=== PATIENT | female | born 1960 | race African-American/Black ===

== ENCOUNTER 2024-04-03 22:45 | Inpatient (IN) | payer MEDICARE, OTHER ==
[~2024-04-03] VITALS: Ht 7 cm; Wt 100.2 kg
[2024-04-03 22:45] VITALS: BP 137/76; PULSE 63; RESP 17; TEMP 97.8
[~2024-04-03 22:45] MED LIST: AMLO10TA4 PO; BENA-8 PO; DOCU100T PO; FOLI-43 PO; LEVO-65 MT; LEVO125T8 PO; ROSU5TAB PO
[2024-04-03 23:00] VITALS: BP 137/76; PULSE 63; RESP 17; TEMP 97.8
[2024-04-04] MEDS ORDERED: NALOXONE HCL 0.4MG/ML 1ML VIAL IV PRN
[2024-04-04] MEDS ORDERED: CLONIDINE 0.1MG TABLET PO PRN
[2024-04-04] MEDS ORDERED: IPRATROPIUM/ALBUTEROL 0.5-3(2.5)MG/3ML NEB HHN PRN
[2024-04-04] MEDS ORDERED: ONDANSETRON HCL 4MG/2ML INJ IV PRN
[2024-04-04] MEDS: TRAMADOL 50MG TABLET PO SCH (06:13)
[2024-04-04] MEDS: LEVOTHYROXINE SODIUM 125MCG TABLET PO SCH (06:13)
[2024-04-04 08:00] VITALS: BP 132/75; PULSE 61; RESP 18; TEMP 97.2
[2024-04-04 08:49] LABS: BASOPHILS % 0.5 % (0.0-2.0); EOSINOPHILS % 5.1 % (0.0-5.0); HEMATOCRIT. 36.1 % (36.0-48.0); HEMOGLOBIN. 11.8 g/dL (12.0-16.0); LYMPHOCYTES % 23.3 % (20.0-50.0); MEAN CORPUSCULAR HEMOGLOBIN 27.5 pg (28.0-32.0); MEAN CORPUSCULAR HGB CONC 32.8 g/dL (31.0-37.0); MEAN PLATELET VOLUME 9.5 fl (7.4-10.4); MONOCYTES % 5.2 % (2.0-8.0); NEUTROPHILS % 65.9 % (40.0-76.0); PLATELET 293 x1000/uL (130-400); RED BLOOD CELL COUNT 4.29 mill/uL (4.2-5.4); RED CELL DISTRIBUTION WIDTH 14.3 % (11.6-14.6); WHITE BLOOD COUNT 11.5 x1000/uL (4.5-11.0)
[2024-04-04] MEDS: AMLODIPINE 5MG TABLET PO SCH (08:50)
[2024-04-04 08:57] LABS: CALCIUM 9.7 mg/dL (8.7-10.4); CARBON DIOXIDE 21 mEq/L (21-32); CHLORIDE 104 mEq/L (98-107); POTASSIUM 4.4 mEq/L (3.5-5.1); SODIUM 137 mEq/L (136-145)
[2024-04-04 09:02] LABS: CREATININE 0.9 mg/dL (0.6-1.0); GLUCOSE 102 mg/dL (70-105); UREA NITROGEN BLOOD 14 mg/dL (9-23)
[2024-04-04 09:04] LABS: ALANINE AMINOTRANSFERASE 16 IU/L (10-49); ALBUMIN 4.4 g/dL (3.2-4.8); ASPARTATE AMINOTRANSFERASE 22 IU/L (<34); BILIRUBIN TOTAL 0.3 mg/dL (0.1-1.0); PREALBUMIN 14.6 mg/dl (10.0-40.0); PROTEIN TOTAL 7.5 g/dL (6.0-8.3)
[2024-04-04 15:30] LABS: CLARITY URINE CLEAR (CLEAR); COLOR URINE YELLOW (YELLOW); GLUCOSE URINE NEGATIVE (NEGATIVE); KETONES URINE NEGATIVE (NEGATIVE); LEUKOCYTE ESTERASE URINE NEGATIVE (NEGATIVE); NITRITE URINE NEGATIVE (NEGATIVE); OCCULT BLOOD URINE NEGATIVE (NEGATIVE); PH URINE 5.5 (4.5-8.0); PROTEIN URINE NEGATIVE (NEGATIVE); SPECIFIC GRAVITY URINE 1.022 (1.005-1.030); UROBILINOGEN URINE 0.2 E.U./dL (0.2-1.0)
[2024-04-04] MEDS: CEFTRIAXONE 1GM/50ML 50 ML IV SCH (15:36)
[2024-04-04 20:00] VITALS: BP 122/74; PULSE 65; RESP 18; TEMP 98.6
[2024-04-05] MEDS ORDERED: LACTULOSE 20G/30ML UDC PO PRN (02:30)
[2024-04-05 05:53] LABS: BASOPHILS % 0.4 % (0.0-2.0); CHLORIDE 105 mEq/L (98-107); EOSINOPHILS % 5.3 % (0.0-5.0); HEMATOCRIT. 33.4 % (36.0-48.0); HEMOGLOBIN. 11.1 g/dL (12.0-16.0); LYMPHOCYTES % 26.2 % (20.0-50.0); MEAN CORPUSCULAR HEMOGLOBIN 27.4 pg (28.0-32.0); MEAN CORPUSCULAR HGB CONC 33.4 g/dL (31.0-37.0); MEAN CORPUSCULAR VOLUME 82.2 fL (81.0-99.0); MEAN PLATELET VOLUME 8.8 fl (7.4-10.4); MONOCYTES % 4.3 % (2.0-8.0); NEUTROPHILS % 63.8 % (40.0-76.0); PLATELET 309 x1000/uL (130-400); POTASSIUM 4.1 mEq/L (3.5-5.1); RED BLOOD CELL COUNT 4.06 mill/uL (4.2-5.4); RED CELL DISTRIBUTION WIDTH 14.5 % (11.6-14.6); SODIUM 137 mEq/L (136-145)
[2024-04-05 05:54] LABS: CARBON DIOXIDE 28 mEq/L (21-32)
[2024-04-05 05:55] LABS: CALCIUM 9.7 mg/dL (8.7-10.4)
[2024-04-05 05:59] LABS: CREATININE 0.9 mg/dL (0.6-1.0); GLUCOSE 96 mg/dL (70-105); IRON 50 ug/dL (50-170)
[2024-04-05 06:00] LABS: UREA NITROGEN BLOOD 16 mg/dL (9-23)
[2024-04-05 06:01] LABS: ALANINE AMINOTRANSFERASE 15 IU/L (10-49); ALBUMIN 4.1 g/dL (3.2-4.8); ASPARTATE AMINOTRANSFERASE 18 IU/L (<34); FERRITIN 112 ng/mL (10-291)
[2024-04-05 06:02] LABS: BILIRUBIN TOTAL 0.3 mg/dL (0.1-1.0); PROTEIN TOTAL 7.1 g/dL (6.0-8.3); TOTAL IRON BINDING CAPACITY 241 ug/dl (250-425); VITAMIN B12 SERUM 347 pg/mL (211-911)
[2024-04-05 06:03] LABS: FOLIC ACID (FOLATE) SERUM 12.28 ng/mL (>5.38); THYROID STIMULATING HORMONE 5.56 uIU/mL (0.55-4.78)
[2024-04-05] MEDS: LACTULOSE 20G/30ML UDC PO PRN (06:21)
[2024-04-05 08:00] VITALS: BP 141/58; PULSE 60; RESP 18; TEMP 97.4
[2024-04-05] MEDS: CYANOCOBALAMIN 1000MCG/ML VIAL IM SCH (11:01)
[2024-04-05 20:00] VITALS: BP 115/63; PULSE 64; RESP 19; TEMP 98.8
[2024-04-06 08:00] VITALS: BP 120/61; PULSE 67; RESP 19; TEMP 97.5
[2024-04-06 20:00] VITALS: BP 115/60; PULSE 65; RESP 18; TEMP 97.7
[2024-04-07 07:06] LABS: BASOPHILS % 0.5 % (0.0-2.0); EOSINOPHILS % 5.7 % (0.0-5.0); HEMATOCRIT. 36.6 % (36.0-48.0); HEMOGLOBIN. 12.3 g/dL (12.0-16.0); LYMPHOCYTES % 22.4 % (20.0-50.0); MEAN CORPUSCULAR HEMOGLOBIN 27.7 pg (28.0-32.0); MEAN CORPUSCULAR HGB CONC 33.4 g/dL (31.0-37.0); MEAN CORPUSCULAR VOLUME 82.7 fL (81.0-99.0); MEAN PLATELET VOLUME 8.6 fl (7.4-10.4); MONOCYTES % 5.2 % (2.0-8.0); NEUTROPHILS % 66.2 % (40.0-76.0); PLATELET 339 x1000/uL (130-400); RED BLOOD CELL COUNT 4.43 mill/uL (4.2-5.4); RED CELL DISTRIBUTION WIDTH 14.5 % (11.6-14.6); WHITE BLOOD COUNT 10.8 x1000/uL (4.5-11.0)
[2024-04-07 08:00] VITALS: BP 128/74; PULSE 61; RESP 18; TEMP 97.4
[2024-04-07] MEDS: CHOLECALCIFEROL (D3) 1000 UNIT TABLET PO SCH (16:41)
[2024-04-07 20:00] VITALS: BP 105/72; PULSE 65; RESP 18; TEMP 97.9
[2024-04-07] MEDS: ATORVASTATIN CALCIUM 20MG TABLET PO SCH (21:36)
[2024-04-08] MEDS: ACETAMINOPHEN 325MG TABLET PO PRN (19:34)
[2024-04-08 20:00] VITALS: BP 127/70; PULSE 69; RESP 19; TEMP 97.1
[2024-04-09 08:00] VITALS: BP 104/55; PULSE 61; RESP 18; TEMP 97.2
[2024-04-09 20:00] VITALS: BP 111/64; PULSE 60; RESP 20; TEMP 97.7
[2024-04-10 08:00] VITALS: BP 105/62; PULSE 64; RESP 19; TEMP 97.9
[2024-04-10 20:00] VITALS: BP 122/61; PULSE 70; RESP 19; TEMP 97.1
[2024-04-10] MEDS: MAGNESIUM HYDROXIDE 400MG/5ML 30ML UDC PO NR (20:00)
[2024-04-10] MEDS ORDERED: NALOXONE HCL 0.4MG/ML VIAL IV PRN (20:00)
[2024-04-10] MEDS: TRAMADOL 50MG TABLET PO SCH (22:10)
[2024-04-11 08:00] VITALS: BP 128/75; PULSE 74; RESP 20; TEMP 98.1
[2024-04-11 20:00] VITALS: BP 117/59; PULSE 71; RESP 18; TEMP 98.4
[2024-04-12 08:00] VITALS: BP 105/66; PULSE 61; RESP 18; TEMP 98.6
[2024-04-12 08:17] VITALS: BP 105/66; PULSE 61; RESP 18; TEMP 98.6
[2024-04-12 20:00] VITALS: BP 125/58; PULSE 61; RESP 18; TEMP 98.8
[2024-04-13 08:00] VITALS: BP 114/60; PULSE 64; RESP 20; TEMP 97.5
[2024-04-13 09:12] LABS: DOPAMINE PLASMA <30 pg/mL (0-48); EPINEPHRINE PLASMA 24 pg/mL (0-62); NOREPINEPHRINE PLASMA 282 pg/mL (0-874)
[2024-04-13 19:53] VITALS: BP 110/52; PULSE 65; RESP 20; TEMP 97.2
[2024-04-14 07:43] LABS: CALCIUM 9.6 mg/dL (8.7-10.4); CARBON DIOXIDE 28 mEq/L (21-32); CHLORIDE 104 mEq/L (98-107); POTASSIUM 4.2 mEq/L (3.5-5.1); SODIUM 139 mEq/L (136-145)
[2024-04-14 07:49] LABS: CREATININE 0.9 mg/dL (0.6-1.0); GLUCOSE 95 mg/dL (70-105); UREA NITROGEN BLOOD 11 mg/dL (9-23)
[2024-04-14 07:50] LABS: BASOPHILS % 0.5 % (0.0-2.0); EOSINOPHILS % 5.9 % (0.0-5.0); HEMATOCRIT. 35.3 % (36.0-48.0); HEMOGLOBIN. 11.8 g/dL (12.0-16.0); MEAN CORPUSCULAR HEMOGLOBIN 27.8 pg (28.0-32.0); MEAN CORPUSCULAR HGB CONC 33.4 g/dL (31.0-37.0); MEAN CORPUSCULAR VOLUME 83.3 fL (81.0-99.0); MEAN PLATELET VOLUME 8.9 fl (7.4-10.4); MONOCYTES % 5.3 % (2.0-8.0); NEUTROPHILS % 59.3 % (40.0-76.0); PLATELET 298 x1000/uL (130-400); RED BLOOD CELL COUNT 4.23 mill/uL (4.2-5.4); RED CELL DISTRIBUTION WIDTH 14.2 % (11.6-14.6); WHITE BLOOD COUNT 10.3 x1000/uL (4.5-11.0)
[2024-04-14 08:00] VITALS: BP 108/54; PULSE 58; RESP 18; TEMP 97.7
[2024-04-14] MEDS ORDERED: NA PHOS,M-B/NA PHOS,DI-BA ENEMA 118ML PR PRN (12:15)
[2024-04-14] MEDS: NA PHOS,M-B/NA PHOS,DI-BA ENEMA 118ML PR NR (12:16)
[2024-04-14 19:56] VITALS: BP 110/55; PULSE 69; RESP 20; TEMP 97.4
[2024-04-15 08:00] VITALS: BP 117/54; PULSE 58; RESP 20; TEMP 97.7
[2024-04-15 20:00] VITALS: BP 109/59; PULSE 66; RESP 18; TEMP 98.2
[2024-04-16] MEDS: TRAMADOL 50MG TABLET PO NR (01:33)
[2024-04-16 08:00] VITALS: BP 125/56; PULSE 61; RESP 18; TEMP 97.2
[2024-04-16 20:00] VITALS: BP 133/62; PULSE 64; RESP 18; TEMP 98.5
[2024-04-16] MEDS: TRAMADOL 50MG TABLET PO SCH (21:58)
[2024-04-17 08:00] VITALS: BP 114/59; PULSE 61; RESP 19; TEMP 98
[2024-04-17] MEDS ORDERED: NALOXONE HCL 0.4MG/ML VIAL IV PRN (12:00)
[2024-04-17 20:00] VITALS: BP 120/60; PULSE 58; RESP 18; TEMP 97.7
[2024-04-18 06:16] LABS: METANEPHRINE PLASMA 30.8 pg/mL (0.0-88.0); NORMETANEPHRINE PLASMA 32.7 pg/mL (0.0-285.2)
[2024-04-18 08:00] VITALS: BP 116/81; PULSE 93; RESP 18; TEMP 97.9
[2024-04-18 20:00] VITALS: BP 106/60; PULSE 60; RESP 16; TEMP 97.9
[2024-04-19 06:24] LABS: BASOPHILS % 0.5 % (0.0-2.0); EOSINOPHILS % 5.9 % (0.0-5.0); HEMATOCRIT. 34.4 % (36.0-48.0); HEMOGLOBIN. 11.5 g/dL (12.0-16.0); LYMPHOCYTES % 26.5 % (20.0-50.0); MEAN CORPUSCULAR HEMOGLOBIN 27.7 pg (28.0-32.0); MEAN CORPUSCULAR HGB CONC 33.3 g/dL (31.0-37.0); MEAN CORPUSCULAR VOLUME 83.3 fL (81.0-99.0); MONOCYTES % 5.6 % (2.0-8.0); NEUTROPHILS % 61.5 % (40.0-76.0); PLATELET 280 x1000/uL (130-400); RED BLOOD CELL COUNT 4.13 mill/uL (4.2-5.4); RED CELL DISTRIBUTION WIDTH 13.9 % (11.6-14.6); WHITE BLOOD COUNT 10.1 x1000/uL (4.5-11.0)
[2024-04-19 06:27] LABS: CARBON DIOXIDE 30 mEq/L (21-32); CHLORIDE 106 mEq/L (98-107); POTASSIUM 4.1 mEq/L (3.5-5.1); SODIUM 140 mEq/L (136-145)
[2024-04-19 06:28] LABS: CALCIUM 9.6 mg/dL (8.7-10.4)
[2024-04-19 06:32] LABS: CREATININE 0.9 mg/dL (0.6-1.0)
[2024-04-19 06:33] LABS: GLUCOSE 92 mg/dL (70-105); UREA NITROGEN BLOOD 13 mg/dL (9-23)
[2024-04-19 08:00] VITALS: BP 125/60; PULSE 59; RESP 18; TEMP 97.3
[2024-04-19 20:00] VITALS: BP 120/59; PULSE 60; RESP 17; TEMP 98.9
[2024-04-20 08:00] VITALS: BP 140/56; PULSE 60; RESP 20; TEMP 97.7
[2024-04-20 20:00] VITALS: BP 116/58; PULSE 62; RESP 20; TEMP 98.6
[2024-04-21] MEDS: LEVOTHYROXINE SODIUM 125MCG TABLET PO NR (07:12)
[2024-04-21 08:00] VITALS: BP 131/60; PULSE 65; RESP 19; TEMP 98.1
[2024-04-21 11:29] VITALS: BP 131/60; PULSE 65; TEMP 98.1; O2SAT 98
== END 2024-04-21 13:10 | DRG 70 ==
PROVIDERS: ADMIT Physical Medicine & Rehabilitation Spinal Cord Injury Medicine; ATTEND Family Medicine Adult Medicine
PROC: 0HBRXZZ Excision of Toe Nail, External Approach (ICD-10-PCS; principal; 2024-04-20)
PROC: 0HBRXZZ Excision of Toe Nail, External Approach (ICD-10-PCS; 2024-04-20)
PROC: 0HBRXZZ Excision of Toe Nail, External Approach (ICD-10-PCS; 2024-04-20)
PROC: 0HBRXZZ Excision of Toe Nail, External Approach (ICD-10-PCS; 2024-04-20)
PROC: 0HBRXZZ Excision of Toe Nail, External Approach (ICD-10-PCS; 2024-04-20)
PROC: 0HBRXZZ Excision of Toe Nail, External Approach (ICD-10-PCS; 2024-04-20)
PROC: 0HBRXZZ Excision of Toe Nail, External Approach (ICD-10-PCS; 2024-04-20)
PROC: 0HBRXZZ Excision of Toe Nail, External Approach (ICD-10-PCS; 2024-04-20)
PROC: 0HBRXZZ Excision of Toe Nail, External Approach (ICD-10-PCS; 2024-04-20)
PROC: 0HBRXZZ Excision of Toe Nail, External Approach (ICD-10-PCS; 2024-04-20)
DX: G93.41 Metabolic encephalopathy (principal); A41.9 Sepsis, unspecified organism; N39.0 Urinary tract infection, site not specified; R41.4 Neurologic neglect syndrome; I69.351 Hemiplegia and hemiparesis following cerebral infarction affecting right dominant side; D64.9 Anemia, unspecified; E66.9 Obesity, unspecified; G89.29 Other chronic pain; H53.461 Homonymous bilateral field defects, right side; I10 Essential (primary) hypertension; M24.561 Contracture, right knee; R26.9 Unspecified abnormalities of gait and mobility; E53.8 Deficiency of other specified B group vitamins; D35.01 Benign neoplasm of right adrenal gland; E78.00 Pure hypercholesterolemia, unspecified; E55.9 Vitamin D deficiency, unspecified; R73.9 Hyperglycemia, unspecified; I89.0 Lymphedema, not elsewhere classified; L60.0 Ingrowing nail; Z96.651 Presence of right artificial knee joint; E89.0 Postprocedural hypothyroidism; F09 Unspecified mental disorder due to known physiological condition; M25.561 Pain in right knee; M48.061 Spinal stenosis, lumbar region without neurogenic claudication; F32.A Depression, unspecified; L60.3 Nail dystrophy; N28.1 Cyst of kidney, acquired; R11.2 Nausea with vomiting, unspecified; R20.0 Anesthesia of skin; R47.1 Dysarthria and anarthria; R53.81 Other malaise; Z91.81 History of falling; Z90.711 Acquired absence of uterus with remaining cervical stump; Z81.1 Family history of alcohol abuse and dependence; Z80.9 Family history of malignant neoplasm, unspecified; Z63.72 Alcoholism and drug addiction in family; Z68.35 Body mass index [BMI] 35.0-35.9, adult; Z82.49 Family history of ischemic heart disease and other diseases of the circulatory system
CPT/HCPCS: 36415; 80048; 80053; 81003; 82088; 82306; 82533; 82607; 82728; 82746; 82962; 83036; 83540; 83550; 83835; 84134; 84244; 84443; 85025; 87077; 87186; 92523; 97110; 97112; 97116; 97150; 97162; 97166; 97530; 97535; 97542; A6261; J0696; J3420